=== PATIENT | male | born 2000 | race African-American/Black ===

== ENCOUNTER 2021-04-30 14:27 | Emergency (ER) | payer OTHER ==
[~2021-04-30 14:27] MED LIST: PERCOCET 5-3251 EACH PO
== END 2021-04-30 17:22 | disposition home or self-care (01) ==
LOC: FER 14:27
DX: M25.561 Pain in right knee (principal); F17.290 Nicotine dependence, other tobacco product, uncomplicated; I10 Essential (primary) hypertension
CPT/HCPCS: 73564